=== PATIENT | male | born 1955 | race Caucasian/White ===

== ENCOUNTER 2018-07-26 12:51 | Inpatient (IN) ==
[2018-07-26] MEDS ORDERED: ACETAMINOPHEN 325 MG TABLET PO PRN (15:38)
[2018-07-26] MEDS ORDERED: ONDANSETRON 4 MG/2 ML VIAL IV PRN (15:38)
[2018-07-26] MEDS ORDERED: ZALEPLON 5 MG CAPSULE PO PRN (15:38)
[2018-07-26] MEDS ORDERED: MORPHINE 4 MG/1 ML VIAL IV PRN (15:38)
[2018-07-26] MEDS ORDERED: SODIUM CHLORIDE 0.9% 1,000 ML IV SCH (16:00)
[2018-07-26] MEDS ORDERED: PANTOPRAZOLE 40 MG TABLET PO SCH (16:00)
[2018-07-26] MEDS: FUROSEMIDE 40 MG/4 ML VIAL IV SCH (16:18)
[2018-07-26] MEDS: RAMIPRIL 2.5 MG CAPSULE PO SCH (17:52)
[2018-07-26] MEDS: INSULIN GLARGINE 100 UNIT/ML SUBCUT SCH (20:05)
[2018-07-26] MEDS: TICAGRELOR 90 MG TABLET PO SCH (20:05)
[2018-07-26] MEDS: CARVEDILOL 12.5 MG TABLET PO SCH (20:05)
[2018-07-26] MEDS: POTASSIUM CHLORIDE 20 MEQ TABLET PO SCH (20:07)
[2018-07-26] MEDS: INSULIN LISPRO 100 UNIT/ML SUBCUT SCH (20:07)
[2018-07-27 05:35] LABS: Basophils # 0.1 10*3/uL (0.0-0.2); Basophils % 0.8 % (0.0-0.8); Eosinophils # 0.2 10*3/uL (0.0-0.87); Eosinophils % 1.5 % (0.00-10.9); Hematocrit 41.1 VOL% (42.0-52.0); Hemoglobin 13.3 GM/DL (14.0-18.0); Immature Granulocytes % 0.4 %; Immature Granulocytes Absolute 0.04 #; Lymphocytes # 2.7 10*3/uL (1.4-4.0); Lymphocytes % 27.4 % (21.2-54.2); Mean Corpuscular HGB Conc 32.4 GM/DL (32-36); Mean Corpuscular Hemoglobin 28 PG (27-34); Mean Corpuscular Volume 85.4 FL (87-102); Mean Platelet Volume 10.6 FL (9.6-12.0); Monocytes # 0.9 10*3/uL (0.11-0.8); Monocytes % 9.6 % (1.7-12.7); Neutrophils # 5.9 10*3/uL (1.4-7.4); Neutrophils % 60.3 % (38.7-73.9); Platelet Count 196 T/CUMM (130-400); Red Blood Count 4.81 MC/CUMM (3.8-5.5); White Blood Count 9.8 T/CUMM (4-12)
[2018-07-27 05:58] LABS: Calcium 8.1 MG/DL (8.5-10.1); Osmolality,Calculated 286.3 MOS/KG (273-304); Potassium 3.3 MMOL/L (3.5-5.1)
[2018-07-27 06:02] LABS: Troponin I 1.11 NG/ML (0.00-0.045)
[2018-07-27 06:04] LABS: Thyroid Stimulating Hormone 0.724 uIU/ml (0.358-3.74); VLDL CHOLESTEROL 25.2 MG/DL
[2018-07-27 07:35] LABS: Troponin I 0.942 NG/ML (0.00-0.045)
[2018-07-27] MEDS: INSULIN LISPRO 100 UNIT/ML SUBCUT SCH ×4 (08:00→20:31)
[2018-07-27] MEDS: FUROSEMIDE 40 MG/4 ML VIAL IV SCH ×2 (08:01→08:42)
[2018-07-27] MEDS: CARVEDILOL 12.5 MG TABLET PO SCH ×2 (08:01→16:58)
[2018-07-27] MEDS: OMEGA 3 ACID ETHYL ESTERS 1 GM CAPSULE PO SCH (08:02)
[2018-07-27] MEDS: POTASSIUM CHLORIDE 20 MEQ TABLET PO SCH ×4 (08:02→16:58)
[2018-07-27] MEDS: MULTIVITAMIN (CENTRUM) TABLET PO SCH (08:03)
[2018-07-27] MEDS: ASPIRIN EC 81 MG TABLET PO SCH (08:03)
[2018-07-27] MEDS: PANTOPRAZOLE 40 MG TABLET PO SCH (08:03)
[2018-07-27] MEDS: ROSUVASTATIN 10 MG TABLET PO SCH (08:03)
[2018-07-27] MEDS: TICAGRELOR 90 MG TABLET PO SCH ×2 (08:03→20:31)
[2018-07-27] MEDS: RAMIPRIL 2.5 MG CAPSULE PO SCH (08:22)
[2018-07-27] MEDS ORDERED: POTASSIUM CHLORIDE 20 MEQ TABLET PO SCH (09:00)
[2018-07-27 11:53] LABS: Troponin I 0.722 NG/ML (0.00-0.045)
[2018-07-27 15:23] LABS: Troponin I 0.625 NG/ML (0.00-0.045)
[2018-07-27] MEDS: INSULIN GLARGINE 100 UNIT/ML SUBCUT SCH (20:33)
[2018-07-28 03:56] LABS: Calcium 8.4 MG/DL (8.5-10.1); Osmolality,Calculated 291.1 MOS/KG (273-304)
[2018-07-28] MEDS: INSULIN LISPRO 100 UNIT/ML SUBCUT SCH (07:38)
[2018-07-28] MEDS: TICAGRELOR 90 MG TABLET PO SCH (09:17)
[2018-07-28] MEDS: MULTIVITAMIN (CENTRUM) TABLET PO SCH (09:17)
[2018-07-28] MEDS: OMEGA 3 ACID ETHYL ESTERS 1 GM CAPSULE PO SCH (09:18)
[2018-07-28] MEDS: RAMIPRIL 2.5 MG CAPSULE PO SCH (09:18)
[2018-07-28] MEDS: FUROSEMIDE 40 MG/4 ML VIAL IV SCH (09:18)
[2018-07-28] MEDS: ROSUVASTATIN 10 MG TABLET PO SCH (09:18)
[2018-07-28] MEDS: PANTOPRAZOLE 40 MG TABLET PO SCH (09:18)
[2018-07-28] MEDS: CARVEDILOL 12.5 MG TABLET PO SCH (09:18)
[2018-07-28] MEDS: ASPIRIN EC 81 MG TABLET PO SCH (09:25)
[2018-07-28 12:02] VITALS: BP 140/70
== END 2018-07-28 12:45 | disposition home or self-care (01) | DRG 291 ==
LOC: N.CC 14:56 → SUATTDRO 14:56 → N.TELEN 07-27 10:36
PROVIDERS: ADMIT Internal Medicine; ATTEND Internal Medicine